=== PATIENT | male | born 1985 | race Caucasian/White ===

== ENCOUNTER 2018-05-04 20:08 | Emergency (ER) | payer OTHER ==
[2018-05-04 20:22] VITALS: BP 118/76; PULSE 73; RESP 18; TEMP 97.8; O2SAT 100
--- NOTE | 2018-05-04 21:00 | C.PDOC ---
History Of Present Illness 32 year old male presents to the ED for evaluation of a laceration to his right eyebrow and abrasion to the nose. Patient states he was playing sports when he accidentally crashed against the fence. Patient denies LOC, neck pain, headache , nausea, vomit, dizziness, weakness, numbness. Time Seen by Provider: 05/04/18 20:27 Chief Complaint (Nursing): Abnormal Skin Integrity History Per: Patient History/Exam Limitations: no limitations Onset/Duration Of Symptoms: Hrs Current Symptoms Are (Timing): Still Present Location Of Injury: Right: Head Quality Of Symptoms: Painful Recent travel outside of the [place]: No Additional History Per: Patient Past Medical History Reviewed: Historical Data, Nursing Documentation, Vital Signs Vital Signs: Last Vital Signs Temp 97.8 F 05/04/18 20:19 Pulse 73 05/04/18 20:19 Resp 18 05/04/18 20:19 BP 118/76 05/04/18 20:19 Pulse Ox 100 05/04/18 23:50 - Medical History PMH: No Chronic Diseases Denies: Chronic Kidney Disease Surgical History: No Surg Hx Family History: States: Unknown Family Hx - Social History Hx Alcohol Use: No Hx Substance Use: No - Immunization History Hx Tetanus Toxoid Vaccination: No (UNSURE) Hx Influenza Vaccination: No Hx Pneumococcal Vaccination: No Review Of Systems Constitutional: Negative for: Fever, Chills Eyes: Negative for: Vision Change ENT: Positive for: Nose Pain. Negative for: Other (epistaxis) Gastrointestinal: Negative for: Nausea, Vomiting Skin: Positive for: Other (laceration, abrasion) Neurological: Negative for: Weakness, Numbness, Headache, Dizziness Physical Exam - Physical Exam Appears: Non-toxic, No Acute Distress Skin: Normal Color, Warm, Dry Head: Atraumatic, Normacephalic, Laceration (1.5 cm superficial laceration to right eyebrow) Eye(s): bilateral: Normal Inspection, PERRL, EOMI Nose: No Discharge, No Epistaxis, No Septal Hematoma, Other (small abrasion to bridge of the nose) Tongue: No Lesions Lips: No Lesions Teeth: No Loose, No Avulsed Throat: Normal, No Erythema, No Exudate Neck: Normal ROM, No Midline Cervical Tenderness, Supple Extremity: Normal ROM, No Tenderness, No Swelling Neurological/Psych: Oriented x3, Normal Speech, Normal Cognition, Normal Motor, Normal Sensation Gait: Steady ED Course And Treatment O2 Sat by Pulse Oximetry: 100 (ON RA) Pulse Ox Interpretation: Normal Progress Note: Patient was advised to follow up with PMD and given instructions on proper wound care Laceration - Laceration Repair right eyebrow Wound Length (In cm): 1.5 Description Of Wound: Linear Wound Cleansed With: Betadine, Sterile Saline Wound Examination: Irrigated With Saline, No FB With Wound Exploration, No Tendon Injury With Wound Exploration Wound Closure: Steri Strips (x3), Skin Glue Wound Complexity: Simple Disposition Counseled Patient/Family Regarding: Diagnosis, Need For Followup - Disposition Referrals: at [facility] [Outside] Disposition: HOME/ ROUTINE Disposition Time: 20:57 Condition: STABLE Additional Instructions: Please keep wound dry for 2 days Tylenol or advil for pain Return to ER if worse Instructions: Laceration Repair With Glue (DC), Head Injury Observation (DC) Forms: [employer] (Japanese) - Clinical Impression Clinical Impression: Laceration of face, Head injury - PA / [employer] / Resident Statement MD/DO has reviewed & agrees with the documentation as recorded. - Scribe Statement The provider has reviewed the documentation as recorded by the Scribe Adam Lucas All medical record entries made by the Scribe were at my direction and personally dictated by me. I have reviewed the chart and agree that the record accurately reflects my personal performance of the history, physical exam, medical decision making, and the department course for this patient. I have also personally directed, reviewed, and agree with the discharge instructions and disposition.
== END 2018-05-04 21:14 | disposition home or self-care (01) ==
LOC: C.ER 20:08
DX: S01.111A Laceration without foreign body of right eyelid and periocular area, initial encounter (principal); W22.8XXA Striking against or struck by other objects, initial encounter